=== PATIENT | female | born 1945 | race Caucasian/White ===

== ENCOUNTER → 2019-12-27 10:40 | Outpatient (CLI) | payer OTHER, SELFPAY ==
--- NOTE | ~2019-12-27 | MM_ITS ---
EXAMINATION: MM screening alan BI w gee HISTORY: Screening TECHNIQUE: Craniocaudal and mediolateral oblique 3-D tomosynthesis images were obtained and synthetic 2-D images were generated. CAD analysis was submitted and interpreted. COMPARISON: Comparison to multiple prior studies sequentially, with oldest reviewed study dated 06/20. BREAST PARENCHYMAL COMPOSITION: There are scattered areas of fibroglandular density. FINDINGS: There is no evidence of suspicious mass, calcification, or architectural distortion to sugg est malignancy in either breast. There has been no suspicious interval change. IMPRESSION: 1. No mammographic evidence of malignancy. 2. Recommend routine screening mammography in one year. BI-RADS Category 1: Negative Reviewed, dictated and finalized at location A.
== END ==
PROVIDERS: PCP Family Medicine Adolescent Medicine; Visit Provider Family Medicine Adolescent Medicine
DX: Z12.31 Encounter for screening mammogram for malignant neoplasm of breast (principal)
CPT/HCPCS: 77063; 77067

== ENCOUNTER 2020-05-28 00:31 | Outpatient (CLI) | payer OTHER, SELFPAY ==
[2020-05-28 17:34] LABS: SARS-CoV-2 RNA PCR Negative
== END 2020-05-28 00:32 | disposition home or self-care (01) ==
LOC: ANHCOVIDDT 00:33
PROVIDERS: Family Provider Family Medicine Adolescent Medicine; Visit Provider Student in an Organized Health Care Education/Training Program
DX: Z01.812 Encounter for preprocedural laboratory examination (principal); Z20.822 Contact with and (suspected) exposure to COVID-19
CPT/HCPCS: C9803; U0003; U0005

== ENCOUNTER 2020-05-28 09:08 | Outpatient (CLI) | payer OTHER, SELFPAY ==
[2020-05-28 09:34] LABS: Hematocrit 38.5 % (37.0-47.0); Hemoglobin 12.3 g/dL (12.0-15.0); Mean Corpuscular HGB Conc 31.9 g/dl (32-36); Mean Corpuscular Hemoglobin 27.9 pg (26-34); Mean Corpuscular Volume 87.3 fl (80-100); Mean Platelet Volume 9.3 fl (7.4-10.4); Platelet Count Result 291 k/mm3 (150-375); Red Blood Count 4.41 M/mm3 (4.2-5.4); Red Cell Distribution Width 14.6 % (11.5-14.5); White Blood Count 5.6 K/mm3 (4.5-10.0)
[2020-05-28 09:54] LABS: Anion Gap 3 mmol/L (8-16); Blood Urea Nitrogen 21 mg/dL (7-17); Calcium 8.9 mg/dL (8.4-10.2); Carbon Dioxide 31 mmol/L (22-30); Chloride 105 mmol/L (98-107); Estimated Glomerular Filt Rate 54; Glucose 93 mg/dL (65-105); Sodium 139 mmol/L (137-145)
== END 2020-05-28 09:09 | disposition home or self-care (01) ==
PROVIDERS: Anesthesiology; Family Provider Family Medicine Adolescent Medicine; Visit Provider Student in an Organized Health Care Education/Training Program
DX: N81.6 Rectocele (principal); I10 Essential (primary) hypertension; Z01.818 Encounter for other preprocedural examination
CPT/HCPCS: 36415; 80048; 85027; 86850; 86900; 86901

== ENCOUNTER 2020-05-31 00:29 | Day surgery (SDC) | payer OTHER, SELFPAY ==
[2020-05-23 15:09] VITALS: BMI 32.5
[2020-05-31] VITALS (16 sets, daily range): BP systolic 107–143; BP diastolic 56–95; PULSE 62–82; RESP 12–18; TEMP 36.1–36.6; O2SAT 93–100
--- NOTE | 2020-05-31 07:59 | WPDANESEPPF ---
Anes - Initial Pre Proc Eval Procedure: Operation Date: 05/31/20 12:00 Proposed Procedures p Rectocele Repair - Aldo Lujan MD Date/Time: 05/31/20 07:59 Surgeon: Aldo Lujan MD Pre Op Diagnosis: Pelvic Prolapse, Rectocele Patient Data Age: 75 Gender: F Height: 1.63 m Weight: 86.2 kg Allergies Allergy/AdvReac Type Severity Reaction Status Date / Time bupropion [From Wellbutrin] Allergy Intermediate RESP Verified 05/31/20 09:52 DISTRESS Kiwi Allergy Severe Swelling Uncoded 05/31/20 09:52 Home Medications Medication Instructions Recorded Confirmed Type ascorbic acid (vitamin C) 500 mg PO DAILY 05/23/20 05/31/20 History cetirizine [Zyrtec] 10 mg PO PRN PRN 05/23/20 05/31/20 History lisinopril-hydrochlorothiazide 1 tablet PO BID 05/23/20 05/31/20 History omeprazole 20 mg PO DAILY 05/23/20 05/31/20 History potassium chloride 10 meq PO BID 05/23/20 05/31/20 History Patient hx anesthesia problems: none Family hx anesthesia problems: none PMFSH Past Medical History Medical History (Updated 05/31/20 @ 08:12 by Aldo Lujan MD) Anxiety Chronic GERD HTN (hypertension) Obesity Rheumatoid arthritis Family History Family History (Updated 12/22/13 @ 07:13 by DOCTOR UNKNOWN) Father Hypertension Cerebrovascular accident Family history of malignant neoplasm of urinary bladder Sibling Hypertension Mother Family history of elevated blood lipids Acute myocardial infarction Other Diabetes mellitus Family history of cardiovascular disease Social History Social History Smoking packs per day: 0.5 Smoking cigarettes per day: 10.0 Years smoked: 39 Smoking pack-years: 19.50 Smoking status: Former smoker Tobacco type: cigarettes Smoking end date: 04/27/03 Alcohol intake: current Living arrangements: with family Spiritual care concerns: No Anes - Eval Final PreProcedure Day of Procedure 05/31/20 07:59 Patient weight: obese Heart: regular rate and rhythm Lungs: clear to auscultation and normal air movement Airway: Mallampati scale class II Neurological: alert and oriented Last oral intake: >/= 8 hours ASA classification: III Emergent: no Anesthetic plan: proceed Anesthesia type and monitoring: general GIVS Informed Consent: The patient's anesthetic plan and its attendant risks and benefits were discussed with the patient/family/POA. Questions were solicited and answers provided to the satisfaction of the patient/family/POA.
--- NOTE | 2020-05-31 08:08 | PM.IMHP ---
H&P: HPI History of Present Illness Date/Time: 05/31/20 08:08 Chief Complaint: pelvic organ prolapse Narrative: Karo Mann is a 75 year old female who presents for posterior colporrhaphy for pelvic organ prolapse. Pt presented to the office complaining of pelvic pressure and discomfort. She states she has also noticed a vaginal bulge when straining for a bowel movement. Pt was found to have a grade 2 rectocele. Pt was evaluated by urogynecology for any urinary dysfunction. Review of Systems Cardiovascular: Cardiovascular: Denies chest pain, Denies leg edema, Denies palpitations, Denies dyspnea and Denies dyspnea on exertion Respiratory: Respiratory: Denies cough, Denies dyspnea and Denies dyspnea on exertion Gastrointestinal: Gastrointestinal: Denies abdominal pain, Denies constipation, Denies diarrhea, Denies nausea and Denies vomiting Genitourinary: Genitourinary: Denies hematuria, Denies urinary frequency, Denies dysuria, Denies pelvic pain, Denies urinary incontinence and Denies vaginal discharge Neurologic: Reports system reviewed and no additional complaints, except as documented Psychiatric: Psychiatric: Reports no additional psychiatric complaints Endocrine: Endocrine: Denies palpitations [facility] Past Medical History Medical History (Updated 05/31/20 @ 08:12 by Aldo Lujan MD) Anxiety Chronic GERD HTN (hypertension) Obesity Rheumatoid arthritis Family History Family History (Updated 12/22/13 @ 07:13 by DOCTOR UNKNOWN) Father Hypertension Cerebrovascular accident Family history of malignant neoplasm of urinary bladder Sibling Hypertension Mother Family history of elevated blood lipids Acute myocardial infarction Other Diabetes mellitus Family history of cardiovascular disease Social History Social History Smoking packs per day: 0.5 Smoking cigarettes per day: 10.0 Years smoked: 39 Smoking pack-years: 19.50 Smoking status: Former smoker Tobacco type: cigarettes Smoking end date: 04/27/03 Alcohol intake: current Living arrangements: with family Spiritual care concerns: No Meds Home Medications and Allergies Home Medications Medication Instructions Recorded Confirmed Type ascorbic acid (vitamin C) 500 mg PO DAILY 05/23/20 05/23/20 History cetirizine [Zyrtec] 10 mg PO PRN PRN 05/23/20 05/23/20 History lisinopril-hydrochlorothiazide 1 tablet PO BID 05/23/20 05/23/20 History omeprazole 20 mg PO DAILY 05/23/20 05/23/20 History potassium chloride 10 meq PO BID 05/23/20 05/23/20 History Allergies Allergy/AdvReac Type Severity Reaction Status Date / Time bupropion [From Wellbutrin] Allergy RESP Verified 05/23/20 14:31 DISTRESS Kiwi Allergy Severe Swelling Uncoded 05/23/20 14:30 Exam Const: General: no acute distress Eyes: EOM: EOMs intact bilaterally Neck: Neck: supple Thyroid: thyroid normal Chest: Breast/axilla inspection: normal inspection of the breasts Breast/axilla palpation: normal palpation of the breasts, normal palpation of the axillae and no axillary lymphadenopathy Resp: Effort & Inspection: normal respiratory effort Auscultation: clear to auscultation bilaterally Cardio: Rate: regular rate Rhythm: regular rhythm GI: Inspection: non-distended GI Palp: Yes Soft to palpation, No Tenderness to palpation present (GI) and No Guarding due to palpation present (GI) Auscultation: normal bowel sounds : General: No bladder normal to palpation External Female Exam: normal external appearance Speculum Exam - Vagina: normal vaginal discharge, vagina atrophic, No vaginal bleeding and other (rectocele noted) Speculum Exam - Cervix: Cervix absent Bimanual exam- vagina & uterus: No bladder normal to palpation, No Cervical tenderness present and uterus absent OB/external & speculum: No vaginal bleeding Skin: General skin exam: normal color and no rashes or lesions noted Neuro: Cognition (Neuro): normal cognition Speech: n
--- NOTE | 2020-05-31 08:13 | WPDHPUPDATE1 ---
History and Physical Update Update Date/Time: 05/31/20 08:13 History and Physical has been reviewed, including an updated exam of the patient. There are NO changes in the patient's condition. Risks, benefits, and alternatives have been discussed and questions answered. Patient agrees to proceed with procedure.
[2020-05-31] MEDS: LACTATED RINGERS 1,000 ML 30 ML IV CONT ×2 (10:32→13:56)
[2020-05-31] MEDS: ACETAMINOPHEN 500 MG TABLET 1000 MG PO (10:33)
[2020-05-31] MEDS: KETOROLAC 15 MG/ML VIAL (*BKC) IV PUSH (10:34)
[2020-05-31] MEDS: ceFAZolin 2 GM/D5W 50 ML 2 GM/50 ML BAG IVPB (12:02)
[2020-05-31] MEDS: LIDO 1%/EPINEPHRINE 1:100,000 50 ML VIAL 30 ML INFILTRATE (12:31)
--- NOTE | 2020-05-31 14:46 | PM.PROC ---
Procedure Note - Detailed Date of procedure: 05/31/20 Pre-op diagnosis: Pelvic Prolapse, Rectocele Post-op diagnosis: same Procedure performed: posterior colporrhaphy and perineorrhaphy Description of procedure: INDICATION FOR PROCEDURE: 75 year old patient who presented with symptomatic pelvic organ prolapse. On exam she had stage 2 prolapse. She desired to proceed with appropriate surgical repairs. She was consented to the risks, including bleeding, risk of blood transfusion, infection, injury to surrounding organs such as bowel, bladder, ureters, urethra, the risk of postoperative voiding dysfunction or defecatory dysfunction, risk of nerve injury or reexploration, the risk of recurrent prolapse or incontinence. T patient understood all of these risks and desired to proceed. RECTOCELE REPAIR AND PERINEORRHAPHY: The patient was taken to the operating room and general anesthesia was found to be adequate. She was prepped and draped in the normal sterile fashion and placed in Papito stirrups. Urinary pink catheter was placed. At this time, 1% lidocaine with epinepherine was injected into the posterior vaginal wall and perineum. A pia-shaped wedge of tissue was taken from the posterior perineum and vagina after two Allis clamps were placed on the posterior forchette in the appropriate position to ensure that the vaginal introitus was the appropriate size. With one finger in the rectum, the rectocele was then dissected free of the vaginal mucosa by means of sharp dissection with Morel scissors. The rectocele was then plicated using 0 Vicryl suture in an interrupted fashion. Excess vaginal mucosa was trimmed. The posterior vaginal mucosa was then closed using 3-0 Vicryl in a running fashion and the perineum closed in a subcuticular fashion. Iodiform vaginal packing was placed in the vagina and the Pink catheter was left in place. Sponge, lap and needle counts were correct x 2. There were no complications. The patient tolerated the procedure well and was taken to the recovery room in stable condition. Anesthesia: GETA Surgeon: Aldo Lujan MD Estimated blood loss (mL): 50 Drains: No Packing: Yes Pathology: none sent Complications: No immediate complications Condition: stable Disposition: PACU
--- NOTE | 2020-05-31 15:43 | P.DS_ITS ---
DS: Summary Hospital Course Hospital Course: Karo Mann underwent posterior repair of rectocele. The above procedure was performed with no complications. She is doing well post op. She states her pain is well controlled with PO medications. She reports minimal bleeding. She is ambulating up to the chair. Her pink catheter was removed. She is tolerating PO without N/V. She reports passing flatus. Status at Discharge Overall status at discharge: patient is progressing back to baseline Time Spent with Patient Time attestation: Total time spent providing and/or coordinating discharge s ervices: Time spent: Less than 30 minutes Exam Const: General: comfortable and no acute distress Limitations: no limitations Resp: Effort & Inspection: normal respiratory effort Auscultation: clear to auscultation bilaterally Cardio: Rate: regular rate Rhythm: regular rhythm GI: Inspection: non-distended GI Palp: Yes Soft to palpation, Yes Tenderness to palpation present (GI) (milder tenderness to deep palpation) and No Guarding due to palpation present (GI) Auscultation: normal bowel sounds Other: incisions C/D/I covered with dermabond Urinary Catheter: Urinary Catheter: urine clear Skin: General skin exam: normal color Extrem: General: normal to inspection Psych: Mental Status: mental status grossly normal Affect: normal affect Discharge Plan Discharge Patient Disposition: Home, Self-Care Patient Instructions: Enterocele Repair (DC) Stand Alone Forms: General Discharge Instructions Follow-up/Referrals: Aldo Lujan MD [Physician] - 2 Weeks Discharge Medications: New docusate sodium 100 mg Capsule 100 mg PO BID Qty: 30 RF: 0 hydrocodone-acetaminophen 5-325 mg Tablet 1 tablet PO Q3H PRN (Reason: Pain Rated 5 Or Less) Qty: 28 RF: 0 ibuprofen 600 mg Tablet 600 mg PO Q6H PRN (Reason: Cramping) Qty: 30 RF: 0 Continued lisinopril-hydrochlorothiazide 20-12.5 mg tablet 1 tablet PO BID RF: 0 potassium chloride 10 mEq tablet extended release 10 meq PO BID RF: 0 ascorbic acid (vitamin C) 500 mg Tablet 500 mg PO DAILY RF: 0 omeprazole 20 mg Tablet,Delayed Release (Dr/Ec) 20 mg PO DAILY RF: 0 cetirizine [Zyrtec] 10 mg Tablet 10 mg PO PRN PRN (Reason: Allergy Symptoms) RF: 0
[2020-05-31] MEDS: DEXTROSE 5%/LACTATED RINGERS 1,000 ML 125 ML IV CONT (16:41)
[2020-05-31] MEDS: DOCUSATE SODIUM 100 MG CAPSULE PO (16:41)
--- NOTE | 2020-05-31 19:08 | ADMGEN ---
This patient, Karo Mann, was admitted to OB 2nd Floor Room 280-00. Patient oriented to hospital policies and general routines including ID bracelet, bed and alarms, visiting hours, pain management, procedures, bathroom and other care routines, personal items, smoking policy, room service/diet, and visiting hours. Information on how to activate the Rapid Response Team has been discussed. Patient are encouraged to report perceived risks to care and to ask questions if they do not understand what they are told or what they should do.
[2020-05-31] MEDS: lisinopriL 20 MG TABLET PO (21:00)
[2020-05-31] MEDS: hydroCHLOROthiazide 12.5 MG CAPSULE PO (21:00)
[2020-05-31] MEDS: IBUPROFEN 600 MG TABLET PO (22:39)
[2020-05-31] MEDS: HYDROcodone/acetaminophen (*CRX) 5-325 MG TABLET 1 TAB PO (22:39)
[2020-06-01 04:00] VITALS: BP 95/54; PULSE 82; RESP 16; TEMP 36.3; O2SAT 97
[2020-06-01] MEDS: HYDROcodone/acetaminophen (*CRX) 5-325 MG TABLET 1 TAB PO (04:12)
[2020-06-01 05:45] LABS: Basophils Percent Auto 0.2 % (0.2-1.2); Hematocrit 34.5 % (37.0-47.0); Hemoglobin 11.1 g/dL (12.0-15.0); Immature Granulocyte Absolute 0.09 K/mm3 (0.00-0.031); Immature Granulocyte Percent A 0.7 % (0-0.5); Lymphocytes Absolute Auto 0.96 K/mm3 (0.9-3.2); Lymphocytes Percent Auto 7.7 % (18.3-44.2); Mean Corpuscular HGB Conc 32.2 g/dl (32-36); Mean Corpuscular Hemoglobin 27.6 pg (26-34); Mean Corpuscular Volume 85.8 fl (80-100); Mean Platelet Volume 10.1 fl (7.4-10.4); Monocytes Absolute Auto 0.5 K/mm3 (0.1-0.6); Neutrophils Absolute Auto 10.9 K/mm3 (1.3-6.7); Neutrophils Percent Auto 87.4 % (45.5-73.1); Platelet Count Result 283 k/mm3 (150-375); Red Blood Count 4.02 M/mm3 (4.2-5.4); Red Cell Distribution Width 14.2 % (11.5-14.5); White Blood Count 12.5 K/mm3 (4.5-10.0)
[2020-06-01 08:27] VITALS: BP 96/49; PULSE 58; RESP 16; TEMP 36.2; O2SAT 98
--- NOTE | 2020-06-01 08:58 | PM.GYNPNOP ---
MANUFACTURER'S REPRESENTATIVE - A/P Postoperative Procedures: Procedures Operation Date: 05/31/20 12:00 Actual Procedures Side Surgeon p Rectocele Repair Aldo Lujan MD A: POD#1, doing well. P: Home to f/u with Dr. Lujan as scheduled. Time Spent With Patient Time with patient: less than 15 minutes MANUFACTURER'S REPRESENTATIVE- PN:Subj Post-Op Subjective Date/time seen: 06/01/20 08:58 Interval history: Pain OK. Tolerating diet. Voiding, passing flatus. Would like to go home. Exam Narrative: Exam Narrative: AVSS I/O OK ABD soft, nontender. Incisions c/d/i. EXT nontender MANUFACTURER'S REPRESENTATIVE - PN: Obj Data Vital Signs Vital Signs: Vital Signs - 24 hr 05/31/20 10:37 05/31/20 13:56 05/31/20 14:10 Temperature 36.6 C 36.2 C L Pulse Rate 64 78 67 Respiratory Rate 16 14 15 Blood Pressure 126/78 110/59 L 118/58 L Pulse Oximetry 100 100 100 05/31/20 14:25 05/31/20 14:42 05/31/20 14:55 Temperature Pulse Rate 64 65 62 Respiratory Rate 12 12 12 Blood Pressure 107/68 124/56 L 118/95 H Pulse Oximetry 100 100 99 05/31/20 15:10 05/31/20 15:25 05/31/20 16:45 Temperature Pulse Rate 63 69 66 Respiratory Rate 16 16 16 Blood Pressure 140/63 143/67 H 121/72 Pulse Oximetry 97 99 100 05/31/20 17:00 05/31/20 17:30 05/31/20 18:00 Temperature Pulse Rate 69 79 79 Respiratory Rate 16 16 Blood Pressure 126/78 121/69 121/69 Pulse Oximetry 94 97 97 05/31/20 18:57 05/31/20 19:00 05/31/20 20:30 Temperature 36.1 C L 36.3 C L Pulse Rate 69 72 82 Respiratory Rate 18 16 Blood Pressure 132/66 130/74 134/72 Pulse Oximetry 93 98 96 05/31/20 22:30 06/01/20 04:00 Temperature 36.3 C L 36.3 C L Pulse Rate 74 82 Respiratory Rate 16 16 Blood Pressure 130/70 95/54 L Pulse Oximetry 95 97 Intake/Output Intake/Output: Intake & Output 05/29/20 05/30/20 05/31/20 06/01/20 23:59 23:59 23:59 23:59 Intake Total 1050 500 Output Total 380 1500 Balance 670 -1000 Meds/Results Medications: Active Medications Generic Name Dose Route Start Last Admin Trade Name Freq PRN Reason Stop Dose Admin Hydrocodone Bitart/Acetaminophen 1 tab 05/31/20 15:26 06/01/20 04:12 Hydrocodone/Acetaminophen (*Crx) 5-325 Mg Tablet PO 1 tab Q3H PRN Administration Pain Rated 5 or Less Hydrocodone Bitart/Acetaminophen 1 tab 05/31/20 15:26 Hydrocodone/Acetaminophen (*Crx) 10-325 Mg Tablet PO Q3H PRN Pain Rated 6 or Greater Docusate Sodium 100 mg 05/31/20 17:00 05/31/20 16:41 Docusate Sodium 100 Mg Capsule PO 100 mg BID KENZIE Administration Hydrochlorothiazide 12.5 mg 05/31/20 21:00 05/31/20 21:00 Hydrochlorothiazide 12.5 Mg Capsule PO 12.5 mg Q12HR KENZIE Administration Ibuprofen 600 mg 05/31/20 15:26 05/31/20 22:39 Ibuprofen 600 Mg Tablet PO 600 mg Q6H PRN Administration Cramping Ketorolac Tromethamine 30 mg 05/31/20 15:26 Ketorolac 30 Mg/Ml Vial (*Bkc) IV PUSH 06/05/20 15:27 Q6H PRN Pain Rated 4-6 Lisinopril 20 mg 05/31/20 21:00 05/31/20 21:00 Lisinopril 20 Mg Tablet PO 20 mg Q12HR KENZIE Administration Naloxone HCl 0.1 mg 05/31/20 15:26 Naloxone Hcl 0.4 Mg/Ml Vial IV PUSH Q2M PRN Respiratory rate less than 10 Ondansetron HCl 4 mg 05/31/20 15:26 Ondansetron Inj 4 Mg/2 Ml Vial IV PUSH Q6H PRN Nausea And Vomiting Labs CBC & Chem 7: 06/01/20 04:15 Labs: Laboratory Results - last 24 hr 06/01/20 04:15 WBC 12.5 H RBC 4.02 L Hgb 11.1 L Hct 34.5 L MCV 85.8 MCH 27.6 MCHC 32.2 RDW 14.2 Plt Count 283 MPV 10.1 Immature Gran % (Auto) 0.7 H Neut % (Auto) 87.4 H Lymph % (Auto) 7.7 L [place] % (Auto) 4.0 Eos % (Auto) 0.0 Baso % (Auto) 0.2 Lymph # (Auto) 0.96 [place] # (Auto) 0.5 Eos # (Auto) 0.0 Baso # (Auto) 0.0 Abs Immat Gran (auto) 0.09 H Absolute Neuts (auto) 10.9 H Absolute Nucleated RBC 0.0 Nucleated RBC % 0.0
--- NOTE | 2020-06-01 08:59 | PM.DS ---
DS: Admitting Diagnosis Admitting Diagnosis Admitting Diagnosis: Rectocele DS: Discharge Diagnosis Discharge Diagnosis (1) Prolapse of female pelvic organs: Code(s): N81.9 - Female genital prolapse, unspecified Status: Acute DS: Summary Hospital Course Hospital Course: Admitted for rectocele repair. Postop course unremarkable and was able to go home on POD#1. Time Spent with Patient Time attestation: Total time spent providing and/or coordinating discharge services: DS: Data Data Completed and Pending Labs on day of discharge: Labs from last 24 hours 06/01/20 04:15 WBC 12.5 H RBC 4.02 L Hgb 11.1 L Hct 34.5 L MCV 85.8 MCH 27.6 MCHC 32.2 RDW 14.2 Plt Count 283 MPV 10.1 Immature Gran % (Auto) 0.7 H Neut % (Auto) 87.4 H Lymph % (Auto) 7.7 L [place] % (Auto) 4.0 Eos % (Auto) 0.0 Baso % (Auto) 0.2 Lymph # (Auto) 0.96 [place] # (Auto) 0.5 Eos # (Auto) 0.0 Baso # (Auto) 0.0 Abs Immat Gran (auto) 0.09 H Absolute Neuts (auto) 10.9 H Absolute Nucleated RBC 0.0 Nucleated RBC % 0.0 Discharge Plan Discharge Patient Disposition: Home, Self-Care Discharge Instructions: Call or return if temperature above 100.4? F, increased abdominal pain, increased vaginal bleeding or any new problems. Patient Instructions: Enterocele Repair (DC) Stand Alone Forms: General Discharge Instructions Follow-up/Referrals: Aldo Lujan MD [Physician] - 2 Weeks Discharge Medications: New docusate sodium 100 mg Capsule 100 mg PO BID Qty: 30 RF: 0 hydrocodone-acetaminophen 5-325 mg Tablet 1 tablet PO Q3H PRN (Reason: Pain Rated 5 Or Less) Qty: 28 RF: 0 ibuprofen 600 mg Tablet 600 mg PO Q6H PRN (Reason: Cramping) Qty: 30 RF: 0 Continued lisinopril-hydrochlorothiazide 20-12.5 mg tablet 1 tablet PO BID RF: 0 potassium chloride 10 mEq tablet extended release 10 meq PO BID RF: 0 ascorbic acid (vitamin C) 500 mg Tablet 500 mg PO DAILY RF: 0 omeprazole 20 mg Tablet,Delayed Release (Dr/Ec) 20 mg PO DAILY RF: 0 cetirizine [Zyrtec] 10 mg Tablet 10 mg PO PRN PRN (Reason: Allergy Symptoms) RF: 0
--- NOTE | 2020-06-01 09:00 | PC.NURSE ---
PT introductions made and plan of care discussed per post op instructor modeling surgery, pain management, daily care activities and pending discharge to home. PT verbalized understanding of such care.
[2020-06-01 10:00] VITALS: PULSE 58; RESP 16; O2SAT 98
[2020-06-01] MEDS: lisinopriL 20 MG TABLET PO (10:03)
[2020-06-01] MEDS: DOCUSATE SODIUM 100 MG CAPSULE PO (10:04)
[2020-06-01] MEDS: IBUPROFEN 600 MG TABLET PO (10:04)
[2020-06-01] MEDS: hydroCHLOROthiazide 12.5 MG CAPSULE PO (10:05)
--- NOTE | 2020-06-01 11:40 | WPDANESPN ---
Anes - Prog Note Post-Op Date/Time: 06/01/20 11:40 Cardiovascular status: normal Respiratory status: normal Airway patency: baseline Mental status: baseline Post-Op hydration status: normal Vital Signs: Last Vital Signs Temp 36.2 C L 06/01/20 08:27 Pulse 58 L 06/01/20 08:27 Resp 16 06/01/20 08:27 BP 96/49 L 06/01/20 08:27 Pulse Ox 98 06/01/20 08:27 Pain Score (VAS): 2/10 self reported pain score. Patient resting up to bedside, appears comfortable. Patient states pain 2/10 with relief with PRN meds. I/O: Intake & Output 05/31/20 06/01/20 06/01/20 23:59 07:59 15:59 Intake Total 500 500 400 Output Total 300 1500 100 Balance 200 -1000 300 Laboratory Tests 06/01/20 04:15 06/01/20 04:15 WBC 12.5 H RBC 4.02 L Hgb 11.1 L Hct 34.5 L MCV 85.8 MCH 27.6 MCHC 32.2 RDW 14.2 Plt Count 283 MPV 10.1 Immature Gran % (Auto) 0.7 H Neut % (Auto) 87.4 H Lymph % (Auto) 7.7 L [place] % (Auto) 4.0 Eos % (Auto) 0.0 Baso % (Auto) 0.2 Lymph # (Auto) 0.96 [place] # (Auto) 0.5 Eos # (Auto) 0.0 Baso # (Auto) 0.0 Abs Immat Gran (auto) 0.09 H Absolute Neuts (auto) 10.9 H Absolute Nucleated RBC 0.0 Nucleated RBC % 0.0 Post-procedural complaints: none Patient Feedback: Patient satisfied with anesthetic care.
--- NOTE | 2020-06-01 11:43 | PC.NURSE ---
PT oob ambulating in hallway
--- NOTE | 2020-06-01 12:00 | PC.NURSE ---
PT received discharge instructions per protocol and verbalized understanding of such care.
--- NOTE | 2020-06-01 12:50 | PC.NURSE ---
PT discharged to home ambulatory to waiting car. Follow up appts confirmed
== END 2020-06-01 12:50 | disposition home or self-care (01) ==
LOC: ANHSURGERY 09:44 → ANHOB2 15:28
PROVIDERS: Family Provider Family Medicine Adolescent Medicine; Visit Provider Student in an Organized Health Care Education/Training Program
PROC: (CPT 57260; principal; 2020-05-31 12:00)
DX: N81.89 Other female genital prolapse (principal); N81.6 Rectocele; I10 Essential (primary) hypertension; M06.9 Rheumatoid arthritis, unspecified; K21.9 Gastro-esophageal reflux disease without esophagitis; F41.9 Anxiety disorder, unspecified; Z87.891 Personal history of nicotine dependence; E66.9 Obesity, unspecified; Z68.33 Body mass index [BMI] 33.0-33.9, adult
CPT/HCPCS: 57250; 36415; 80048; 85025; 85027; 86850; 86900; 86901; 99199; A9270; C9803; J0690; J1100; J1885; J2370; J2405; J2704; J2710; J3010; J7120; J7121; U0003; U0005